=== PATIENT | male | born 1995 | race African-American/Black ===

== ENCOUNTER 2021-12-26 11:48 | Emergency (ER) | payer OTHER ==
[~2021-12-26] VITALS: Ht 185.4 cm; Wt 68.0 kg
== END 2021-12-26 11:53 | disposition short-term general hospital (02) ==
LOC: ED 11:48
DX: S67.22XA Crushing injury of left hand, initial encounter (principal); Z88.1 Allergy status to other antibiotic agents; W22.8XXA Striking against or struck by other objects, initial encounter; Y93.89 Activity, other specified; Y92.89 Other specified places as the place of occurrence of the external cause; Y99.8 Other external cause status